=== PATIENT | female | born 1960 | race Hispanic/Latino ===

== ENCOUNTER 2021-06-03 22:38 | Observation (INO) | payer BC, OTHER ==
[2021-06-03 23:48] LABS: #Basophils 0.2 thou/uL (0.0-0.2); #Lymphocytes 2.1 thou/uL (1.20-3.40); #Monocytes 0.7 thou/uL (0.11-0.59); #Neutrophils 8.3 thou/uL (1.40-6.50); %Basophils 1.5 % (0.0-1.0); %Eosinophils 0.1 % (0.0-10.0); %Lymphocytes 18.9 % (21.0-51.0); %Monocytes 5.7 % (0.0-10.0); %Neutrophils 73.8 % (42.0-75.0); Mean Corpuscular Volume 88.2 fL (78.0-98.0); Mean Platelet Volume 6.5 fL (7.4-10.4); Platelet Count 270 thou/uL (130-400); RBC Distribution Width 11.9 % (11.5-14.5); Red Blood Cell (RBC) Count 4.35 mill/uL (4.20-5.40); White Blood Cell (WBC) Count 11.2 thou/uL (4.8-10.8)
[2021-06-04 00:13] LABS: ALT (SGPT) 26 U/L (8-55); AST (SGOT) 20 U/L (5-34); Albumin 4.1 g/dL (3.4-4.8); Alkaline Phosphatase 102 U/L (40-110); Anion Gap 15 mmol/L (10-20); BUN (Urea Nitrogen) 17 mg/dL (9.8-20.1); Bilirubin, Total 0.3 mg/dL (0.2-1.2); Calc. Creatinine Clearance 0 mL/min (70-130); Calcium 8.4 mg/dL (7.8-10.44); Carbon Dioxide 19 mmol/L (23-31); Chloride 104 mmol/L (98-107); Globulin 3.1 g/dL (2.4-3.5); Glucose 310 mg/dL (80-115); Protein, Total 7.2 g/dL (5.8-8.1); Sodium 135 mmol/L (136-145)
[2021-06-04] MEDS ORDERED: Ondansetron PF 4 MG/2 ML Vial ONE (00:14)
[2021-06-04 00:22] LABS: Potassium 2.9 mmol/L (3.5-5.1)
[2021-06-04 01:32] LABS: Bilirubin Negative (Negative); Blood, Urine Negative (Negative); Clarity Clear (Clear); Glucose, Urine (Dipstick) 500 mg/dL (Negative); Ketone, Urine Negative (Negative); Leukocyte Negative Leu/uL (Negative); Nitrite Negative (Negative); Protein, Urine (Dipstick) Negative (Neg-Trace); Urobilinogen Normal mg/dL (Less than 2); pH, Urine 6.5 (5.0-9.0)
[2021-06-04] MEDS ORDERED: Potassium Chloride 20 MEQ TAB ONE (01:34)
[2021-06-04] MEDS ORDERED: Aspirin 325 MG TAB ONE (01:34)
[2021-06-04] MEDS ORDERED: Ondansetron ODT 4 MG TAB SL PRN (02:30)
[2021-06-04] MEDS ORDERED: Acetaminophen 325 MG TAB PO PRN (02:30)
[2021-06-04] MEDS ORDERED: Ondansetron PF 4 MG/2 ML Vial IVP PRN (02:30)
[2021-06-04 03:23] LABS: Troponin I Less than 0.010 ng/mL (< 0.028)
[2021-06-04 04:34] VITALS: BMI 30.2
[2021-06-04] MEDS ORDERED: Acetaminophen 650 MG Suppository PR PRN (06:26)
[2021-06-04 06:31] LABS: Troponin I Less than 0.010 ng/mL (< 0.028)
[2021-06-04] MEDS ORDERED: Sodium Chloride 0.9% 1,000 ML IV SCH (06:45)
[2021-06-04] MEDS ORDERED: Pantoprazole 40 MG VIAL IVP SCH (06:45)
[2021-06-04] MEDS ORDERED: Levothyroxine Sodium 50 MCG TAB PO SCH (07:00)
[2021-06-04 07:36] LABS: #Lymphocytes 3.1 thou/uL (1.20-3.40); #Monocytes 0.8 thou/uL (0.11-0.59); #Neutrophils 7.7 thou/uL (1.40-6.50); %Eosinophils 0.3 % (0.0-10.0); %Lymphocytes 26.4 % (21.0-51.0); %Monocytes 7.2 % (0.0-10.0); %Neutrophils 66.1 % (42.0-75.0); Hemoglobin 14.3 g/dL (12.0-16.0); Mean Corpuscular HGB CONC 34.7 g/dL (32.0-36.0); Mean Corpuscular Hemoglobin 30.3 pg (27.0-31.0); Mean Corpuscular Volume 87.2 fL (78.0-98.0); Mean Platelet Volume 6.2 fL (7.4-10.4); Platelet Count 301 thou/uL (130-400); RBC Distribution Width 11.8 % (11.5-14.5); Red Blood Cell (RBC) Count 4.74 mill/uL (4.20-5.40); White Blood Cell (WBC) Count 11.6 thou/uL (4.8-10.8)
[2021-06-04 07:48] LABS: Hemoglobin A1c 6.3 % (4.0-6.0)
[2021-06-04 08:00] LABS: Anion Gap 13 mmol/L (10-20); BUN (Urea Nitrogen) 13 mg/dL (9.8-20.1); Calc. Creatinine Clearance 91 mL/min (70-130); Carbon Dioxide 25 mmol/L (23-31); Chloride 103 mmol/L (98-107); Glucose 133 mg/dL (80-115); Magnesium 1.7 mg/dL (1.6-2.6); Potassium 3.1 mmol/L (3.5-5.1); Sodium 138 mmol/L (136-145)
[2021-06-04] MEDS ORDERED: Calcium Carbonate 500 MG ChewTAB PO PRN (08:15)
[2021-06-04] MEDS ORDERED: Enoxaparin Sodium 40 MG/0.4 ML SYRINGE SC SCH (09:00)
[2021-06-04] MEDS ORDERED: Potassium Chloride 20 MEQ TAB PO SCH (09:00)
[2021-06-04] MEDS ORDERED: DEXAMETHASONE 6 MG PO SCH (09:00)
[2021-06-04] MEDS ORDERED: MOLNUPIRAVIR 800 MG PO SCH (09:00)
[2021-06-04] MEDS ORDERED: Potassium Chloride 40 MEQ in Premix Bag 1 BAG IVPB SCH (09:00)
[2021-06-04] MEDS ORDERED: Magnesium 2 GM/50 ML 2 GM in Premix Bag 1 BAG IVPB SCH (09:00)
[2021-06-04] MEDS ORDERED: Dexamethasone 4 MG TAB PO SCH (09:00)
[2021-06-04 09:19] VITALS: BP 127/58; TEMP 98.3
[2021-06-05] MEDS ORDERED: Levothyroxine Sodium 50 MCG TAB PO SCH (06:00)
[2021-06-05] MEDS ORDERED: Pantoprazole 40 MG VIAL IVP SCH (09:00)
== END 2021-06-04 16:50 | disposition home or self-care (01) ==
LOC: ERS 22:38 → 2SW 06-04 02:13
PROVIDERS: ADMIT Student in an Organized Health Care Education/Training Program; ATTEND Internal Medicine
DX: R10.13 Epigastric pain (principal); U07.1 COVID-19; E87.1 Hypo-osmolality and hyponatremia; E87.6 Hypokalemia; E83.42 Hypomagnesemia; R73.9 Hyperglycemia, unspecified; T38.0X5A Adverse effect of glucocorticoids and synthetic analogues, initial encounter; D72.829 Elevated white blood cell count, unspecified; E03.9 Hypothyroidism, unspecified; E66.9 Obesity, unspecified; Z68.30 Body mass index [BMI] 30.0-30.9, adult; Z79.899 Other long term (current) drug therapy; Z88.0 Allergy status to penicillin
CPT/HCPCS: 36415; 71045; 71275; 74174; 80048; 80053; 81003; 83036; 83690; 83735; 84439; 84443; 84484; 85025; 93005; 96365; 96367; 96372; 96374; 96375; C9113; G0378; J2405; J3475; J3480; J7050; J8540

== ENCOUNTER 2023-02-25 20:03 | Emergency (ER) | payer BC, OTHER ==
[2023-02-25] MEDS ORDERED: Lidocaine 1% PF 5 ML VIAL ONE (22:14)
== END 2023-02-25 22:57 | disposition home or self-care (01) ==
LOC: ERS 20:03
DX: S61.411A Laceration without foreign body of right hand, initial encounter (principal); E03.9 Hypothyroidism, unspecified; W26.8XXA Contact with other sharp object(s), not elsewhere classified, initial encounter
CPT/HCPCS: 12002

== ENCOUNTER 2023-05-03 14:49 | Outpatient (CLI) | payer BC | END 2023-05-03 14:50 | disposition home or self-care (01) | LOC: BICRAD 14:49 | PROVIDERS: ATTEND Family Medicine | DX: R07.81 Pleurodynia (principal) | CPT/HCPCS: 71046 ==

== ENCOUNTER 2025-03-30 14:27 | Emergency (ER) | payer BC, MEDICARE, OTHER | END 2025-03-30 16:53 | disposition home or self-care (01) | LOC: ERS 14:27 | DX: S30.870A Other superficial bite of lower back and pelvis, initial encounter (principal); S50.872A Other superficial bite of left forearm, initial encounter; Z23 Encounter for immunization; W54.0XXA Bitten by dog, initial encounter | CPT/HCPCS: 90471; 90715 ==